=== PATIENT | male | born 1965 | race Caucasian/White ===

== ENCOUNTER 2018-12-07 19:07 | Emergency (ER) | payer OTHER, SELFPAY ==
[2018-12-07 19:18] VITALS: BP 123/78; PULSE 64; RESP 15; TEMP 36.1; O2SAT 99; BMI 28.1
[2018-12-07 19:44] LABS: Bacteria Urine None Seen
[2018-12-07 19:46] LABS: Bilirubin Urine UA NEGATIVE (NEGATIVE); Glucose Urine UA NEGATIVE (Negative); Ketones Urine UA NEGATIVE (NEGATIVE); Leukocyte Esterase Urine UA TRACE (NEGATIVE); Nitrite Urine UA POSITIVE (Negative); Occult Blood Urine UA 3+ (Negative); Protein Urine UA TRACE (Negative); Specific Gravity Urine UA >=1.030 (1.000-1.035); Urobilinogen Urine UA 0.2 E.U./dL (0.2)
[2018-12-07 19:51] LABS: Appearance Urine UA Slightly Cloudy
[2018-12-07 20:00] LABS: Color Urine UA Orange
[2018-12-07 20:01] LABS: Calcium Oxalate Crystals Urine Moderate; Culture Indicated Urine Specimen Cultured; Mucus Urine 2+ (Negative); RBC Urine 30-100/HPF (0-5/HPF); Squamous Epithelial Cell Urine 1-5 /HPF (0-5/HPF); WBC Urine 5-10/HPF (0-5/HPF)
--- NOTE | 2018-12-07 20:23 | ED.MALEGU ---
HPI - Male Genitourinary General Chief complaint: Urogenital-Male Stated complaint: states kidney stone Time Seen by Provider: 12/07/18 20:23 Source: patient Mode of arrival: ambulatory Limitations: no limitations History of Present Illness HPI Narrative: The patient was riding a car, developing left flank pain 1-2 hours prior to arrival. He has history of kidney stones. He developed left flank pain suddenly. He now has pain radiating to the left lower quadrant and to the genitalia. He has urinary urgency and dysuria. He has hematuria. He has had no recent illness. He has no fever chills. He has no nausea, vomiting or diarrhea. He knows the stones are in his right kidney from prior scans. Related Data Previous Rx's Medication Instructions Recorded ondansetron 4 mg PO Q4H PRN #20 tab 12/08/18 oxycodone-acetaminophen [Percocet] 1 tab PO Q4H PRN #20 tab 12/08/18 Allergies Allergy/AdvReac Type Severity Reaction Status Date / Time amoxicillin Allergy Verified 12/07/18 19:18 Review of Systems Review of Systems ROS Unobtainable: All systems reviewed & are unremarkable except as noted in HPI and below Constitutional Denies chills, Denies fever(s), Denies headache(s) and Denies lethargy ENT Ears, Nose, Mouth, and Throat: Denies headache(s), Denies mouth pain and Denies neck pain Cardiovascular Denies chest pain, Denies lightheadedness and Denies dyspnea Respiratory Denies cough, Denies dyspnea and Denies wheezing Gastrointestinal Gastrointestinal: Reports abdominal pain and Denies nausea Genitourinary Reports testicular pain, Reports urinary frequency and Reports other (Hematuria) Musculoskeletal Denies neck pain Comments: Left back pain Integumentary/Breasts Denies pruritus, Denies erythema and Denies rash Neurologic Denies headache(s) Allergic/Immunologic Denies wheezing [facility] Medical History (Updated 12/08/18 @ 00:01 by Efrain Aponte MD) Nephrolithiasis (Acute) 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) Surgical History (Updated 12/07/18 @ 23:56 by Efrain Aponte MD) No pertinent past surgical history (Acute) Social History Smoking Status: Unknown if ever smoked Social History Smoking Status: Unknown if ever smoked Exam Initial Vital Signs Initial Vital Signs: Vital Signs Temperature 97.0 F L 12/07/18 19:18 Pulse Rate 64 12/07/18 19:18 Respiratory Rate 15 12/07/18 19:18 Blood Pressure 123/78 12/07/18 19:18 Pulse Oximetry 99 12/07/18 19:18 Const General: cooperative and well developed Nutritional Appearance: well nourished Orientation: alert, awake and oriented x3 HENMT Head: normal to inspection, normocephalic and atraumatic Resp Effort & Inspection: normal respiratory effort and able to speak in complete sentences Auscultation: clear to auscultation bilaterally, no rales and no rhonchi Cardio Rate: regular rate Rhythm: regular rhythm Heart Sounds: S1 normal, S2 normal, no click, no gallops, no murmurs and no rubs GI Inspection: non-distended Palpation: soft, no hepatosplenomegaly, No guarding, No pulsatile mass and No tender Auscultation: normal bowel sounds Back/Spine/Pelvis Other: Left CVAT Skin General: no rashes or lesions noted Neuro General: alert, oriented x3, gait normal and no focal motor deficits Speech: speech normal Course Orders Ordered: ED Orders 12/07/18 19:43 Urinalysis and Microscopic Stat Urine Culture Stat 12/07/18 20:50 Complete Blood Count AUTO DIFF Stat Comprehensive Metabolic Panel Stat Lipase Stat 12/07/18 20:51 CT kidney ureter bladder (KUB) Stat Sodium Chloride (Normal Saline 0.9%) 1,000 mls @ 250 mls/hr IV CONT MIKE Last Admin: 12/07/18 20:47 Dose: 250 mls/hr Discontinued Medications Hydromorphone HCl (Dilaudid) 1 mg IV NOW ONE Stop: 12/07/18 21:50 Last Admin: 12/07/18 21:51 Dose: 1 mg Ketorolac Tromethamine (Toradol) 30 mg IV NOW ONE Stop: 12/07/18 20:25 Last Admin: 12/07/18 20:47 Dose: 30 mg Ondansetron HCl (Zofran Odt Prepack) 1 bottle MISC SEEINSTR ONE Stop: 12/07/18 23:53 Oxycodone/Acetaminophen (Endocet 5/325 Prepack) 1 bottle MISC SEEINSTR ONE Stop: 12/07/18 23:53 Tamsulosin HCl (Flomax) 0.4 mg PO NOW ONE Stop: 12/07/18 23:47 Vital Signs - 8 hr 12/07/18 19:18 12/07/18 23:58 Temperature 97.0 F L Pulse Rate 64 50 L Respiratory Rate 15 17 Blood Pressure 123/78 Blood Pressure [Left Arm] 105/63 Pulse Oximetry 99 100 MDM - Male Genitourinary Lab Data Result diagrams: 12/07/18 20:50 12/07/18 20:50 Lab Results 12/07/18 12/07/18 12/07/18 Range/Units 19:43 20:50 20:50 WBC 7.1 (4.5-11.0) X10^3/uL RBC 4.81 (4.5-5.9) X10^6/uL Hgb 14.9 (13.5-17.5) g/dL Hct 44.1 (41-53) % MCV 91.6 (80-100) fL MCH 30.9 (26-34) PG MCHC 33.7 (30-36) % RDW 13.4 (11.6-14.8) % Plt Count 235 (150-400) X10^3/uL Neut % (Auto) 63.2 (50-75) % Lymph % (Auto) 21.4 L (25-40) % Bonner % (Auto) 9.6 (3-14) % Eos % (Auto) 3.4 (2-4) % Baso % (Auto) 2.4 H (0-2) % Neut # (Auto) 4500 (8173-2232) /uL Lymph # (Auto) 1500 (0432-3037) /uL Bonner # (Auto) 700 (0-900) /uL Eos # (Auto) 200 (0-450) /uL Baso # (Auto) 200 H (0-100) /uL Plt Morphology Comment 2+ large and giant RBC Morphology Normal morphology Sodium 142 (137-145) mmol/L Potassium 3.9 (3.4-5.1) mmol/L Chloride 105 (98-107) mmol/L Carbon Dioxide 26 (22-32) mmol/L BUN 15 (9-20) mg/dL Creatinine 1.20 (0.66-1.25) mg/dL Estimated GFR > 60.0 (>60) mL/min BUN/Creatinine Ratio 12.5 (6-22) Glucose 103 H (70-100) mg/dL Calcium 9.3 (8.4-10.2) mg/dL Total Bilirubin 1.2 (0.2-1.3) mg/dL AST 30 (17-59) IU/L ALT 32 (21-72) IU/L Alkaline Phosphatase 146 H (38-126) U/L Total Protein 7.7 (6.3-8.2) g/dL Albumin 4.5 (3.5-5.0) g/dL Globulin 3.2 (1.7-4.1) g/dL Albumin/Globulin Ratio 1.4 (1.0-2.8) Lipase 91 (23-300) U/L Urine Color [place] Urine Appearance Slightly cloudy Urine pH 5.0 (4.5-8.0) Ur Specific [place] >=1.030 H (1.000-1.035) Urine Protein Trace H (Negative) Urine Glucose (UA) Negative (Negative) g/dL Urine Ketones Negative (NEGATIVE) Urine Occult Blood 3+ H (Negative) Urine Nitrate Positive (Negative) Urine Bilirubin Negative (NEGATIVE) Urine Urobilinogen 0.2 (0.2) E.U./dL Ur Leukocyte Esterase Trace H (NEGATIVE) Urine RBC 30-100/hpf H (0-5/HPF) Urine WBC 5-10/hpf H (0-5/HPF) Ur Squamous Epith Cells 1-5 /hpf (0-5/HPF) Calcium Oxalate Crystal Moderate H Urine Bacteria None seen (None) Urine Mucus 2+ H (Negative) Ur Culture Indicated? Specimen cultured Imaging Data CT scan - abdomen: Radiologist's impression: 62 Efrain Aponte MD Find Patient Imaging Rickey Hernandez 53 M 1965 ACTIVITY DATE EXAM STATUS AUTHOR 12/07/18 20:[address] [address] [address] Scan Report Signed Patient: MaryRickey CMR#: [id number] : 1965Acct:[id number] Age/Sex: 53 / MDate of Service: 12/07/18 Loc: Accession Number: [id number] Procedure: CT kidney ureter bladder (KUB) Ordering Provider: Efrain Aponte MD PROCEDURE: CT KIDNEY URETER BLADDER (KUB) INDICATIONS: Hematuria. Left flank pain. TECHNIQUE: Noncontrast 5 mm thick sections acquired from the diaphragms to the symphysis. 5 mm thick coronal and sagittal reformats were then performed. For radiation dose reduction, the following was used: automated exposure control, adjustment of mA and/or kV according to patient size. COMPARISON: None. FINDINGS: Image quality: Excellent. Lung bases: Lung bases are clear. Heart size is normal. Urinary system: There is 0.5 cm nonobstructing nephrolith within the left kidney. There is a 3 mm obstructing calculus at the left ureterovesicular junction resulting in mild ureteral dilatation but no left hydronephrosis. Other solid organs: Liver is normal in size. Gallbladder is surgically absent. Pancreas is normal in contours. Spleen is normal in size. No adrenal nodules. Peritoneum and bowel: Normal appendix on axial image 50 of series 2. No evidence of bowel obstruction. Nodes and vessels: No retroperitoneal or mesenteric adenopathy by size criteria. Aorta and inferior vena cava are normal in caliber. Pelvis: No free pelvic fluid. No inguinal hernias or adenopathy. Bones: There is a right total hip arthroplasty. IMPRESSION: 1. 0.3 cm obstructing ureteral stone at the left ureterovesicular junction resulting in mild left ureteral dilatation. No dell hydronephrosis bilaterally. 2. 0.5 cm nonobstructing nephrolith in the left kidney. Dictated by: Gus Bear M.D. on 12/07/2018 at 23:17 MDM Narrative Medical decision making narrative: The patient is feeling much better after Toradol and Dilaudid. He will be discharged on Percocet with Zofran if needed. [place] He will be here until next week. I have advised arranged follow up in his home town with Urology. He should return here if obviously worse. A copy of his CT will go with him. Discharge Plan Departure Patient Disposition: Home Clinical Impression: Calculus of proximal left ureter Instructions: DI for Kidney Stones Activity Restrictions/Additional Instructions: Be sure you are taking plenty of fluids. Percocet every 4 hr as needed for pain. Zofran every 4 as needed for nausea. Arrange follow-up with Urology in her hometown, return the ER if symptoms become worse. Prescriptions: New oxycodone-acetaminophen [Percocet] 5-325 mg tablet 1 tab PO Q4H PRN (Reason: pain) Qty: 20 RF: 0 ondansetron 4 mg tablet,disintegrating 4 mg PO Q4H PRN (Reason: nausea and vomiting) Qty: 20 RF: 0
[2018-12-07] MEDS: SODIUM CHLORIDE 0.9% 1,000 ML 250 ML IV (20:47)
[2018-12-07] MEDS: KETOROLAC 60 MG/2 ML VIAL 30 MG IV (20:47)
--- NOTE | 2018-12-07 20:51 | DI.CT.S_ITS ---
PROCEDURE: CT KIDNEY URETER BLADDER (KUB) INDICATIONS: Hematuria. Left flank pain. TECHNIQUE: Noncontrast 5 mm thick sections acquired from the diaphragms to the symphysis. 5 mm thick coronal and sagittal reformats were then performed. For radiation dose reduction, the following was used: automated exposure control, adjustment of mA and/or kV according to patient size. COMPARISON: None. FINDINGS: Image quality: Excellent. Lung bases: Lung bases are clear. Heart size is normal. Urinary system: There is 0.5 cm nonobstructing nephrolith within the left kidney. There is a 3 mm obstructing calculus at the left ureterovesicular junction resulting in mild ureteral dilatation but no left hydronephrosis. Other solid organs: Liver is normal in size. Gallbladder is surgically absent. Pancreas is normal in contours. Spleen is normal in size. No adrenal nodules. Peritoneum and bowel: Normal appendix on axial image 50 of series 2. No evidence of bowel obstruction. Nodes and vessels: No retroperitoneal or mesenteric adenopathy by size criteria. Aorta and inferior vena cava are normal in caliber. Pelvis: No free pelvic fluid. No inguinal hernias or adenopathy. Bones: There is a right total hip arthroplasty. IMPRESSION: 1. 0.3 cm obstructing ureteral stone at the left ureterovesicular junction resulting in mild left ureteral dilatation. No dell hydronephrosis bilaterally. 2. 0.5 cm nonobstructing nephrolith in the left kidney. Dictated by: Gus Bear M.D. on 12/07/2018 at 23:17 Approved by: Gus Bear M.D. on 12/07/2018 at 23:20
[2018-12-07 21:04] LABS: Basophils Absolute Auto 200 /uL (0-100); Basophils Percent Auto 2.4 % (0-2); Eosinophils Absolute Auto 200 /uL (0-450); Eosinophils Percent Auto 3.4 % (2-4); Hematocrit 44.1 % (41-53); Hemoglobin 14.9 g/dL (13.5-17.5); Lymphocytes Absolute Auto 1500 /uL (1100-4500); Lymphocytes Percent Auto 21.4 % (25-40); Mean Corpuscular HGB Conc 33.7 % (30-36); Mean Corpuscular Hemoglobin 30.9 PG (26-34); Mean Corpuscular Volume 91.6 fL (80-100); Monocytes Absolute Auto 700 /uL (0-900); Monocytes Percent Auto 9.6 % (3-14); Neutrophils Absolute Auto 4500 /uL (1500-7000); Neutrophils Percent Auto 63.2 % (50-75); Red Blood Cell Count 4.81 X10^6/uL (4.5-5.9); Red Cell Distribution Width 13.4 % (11.6-14.8); White Blood Cell Count 7.1 X10^3/uL (4.5-11.0)
[2018-12-07 21:09] LABS: Alanine Aminotransferase 32 IU/L (21-72); Albumin 4.5 g/dL (3.5-5.0); Albumin Globulin Ratio 1.4 (1.0-2.8); Alkaline Phosphatase 146 U/L (38-126); Aspartate Aminotransferase 30 IU/L (17-59); BUN Creatinine Ratio 12.5 (6-22); Bilirubin Total 1.2 mg/dL (0.2-1.3); Blood Urea Nitrogen 15 mg/dL (9-20); Calcium 9.3 mg/dL (8.4-10.2); Carbon Dioxide 26 mmol/L (22-32); Chloride 105 mmol/L (98-107); Estimated Glomerular Filt Rate > 60.0 mL/min (>60); Globulin 3.2 g/dL (1.7-4.1); Glucose 103 mg/dL (70-100); HEMOLYSIS < 15 (0-50); Lipase 91 U/L (23-300); Potassium 3.9 mmol/L (3.4-5.1); Sodium 142 mmol/L (137-145); Total Protein 7.7 g/dL (6.3-8.2)
[2018-12-07 21:19] LABS: Add Manual Diff / Slide Review SLIDE REVIEW; Platelet Count 235 X10^3/uL (150-400)
[2018-12-07 21:20] LABS: Platelet Morphology Comment 2+ LARGE AND GIANT; RBC Morphology Normal Morphology
[2018-12-07] MEDS: HYDROMORPHONE 1 MG INJ IV (21:51)
[2018-12-07 22:00] VITALS: BP 108/68; PULSE 62; RESP 18; O2SAT 97
[2018-12-07 23:00] VITALS: BP 105/65; PULSE 57; RESP 18; O2SAT 96
[2018-12-07 23:58] VITALS: BP 105/63; PULSE 50; RESP 17; O2SAT 100
[2018-12-08] MEDS: OXYCODONE/APAP 5/325 PREPACK 1 BOTTLE MISC (00:06)
[2018-12-08] MEDS: ONDANSETRON 4 MG ODT PREPACK 1 BOTTLE MISC (00:06)
== END 2018-12-08 00:21 | disposition home or self-care (01) ==
PROVIDERS: Emergency Provider Emergency Medicine
DX: N20.1 Calculus of ureter (principal)
CPT/HCPCS: 36591; 74176; 80053; 81001; 83690; 85025; 87086; 96361; 96374; 96375; 99283; 99284; J1170; J1885